=== PATIENT | female | born 1990 | race African-American/Black ===

== ENCOUNTER 2016-12-05 09:32 | Day surgery (SDC) | payer MEDICAID, OTHER ==
[2016-12-05 09:55] VITALS: BP 146/85; TEMP 98.3; BMI 27.4
--- NOTE | 2016-12-05 16:25 | PRG ---
DATE OF SERVICE: 12/05/2016 PRESENTING COMPLAINT: Contractions at 39 weeks gestation. HISTORY OF PRESENT ILLNESS: Ms. Ignacio is a 26-year-old 2, para 0, AB 1 with an CASE of 1 placing her at 39 weeks gestation who sees Aarti Fischer, certified nurse midwive, at [facility]. She presents complaining of 1 day of contractions. She has been walking and thinks that she may be in labor. She denies rupture of membranes. She reports an active fetus . OBSTETRICS/GYNECOLOGY HISTORY: SAB x1 for low-intervention , patient has mild pruritic urticar ial papules of . She is blood type B positive, antibody negative, Pap negative, rubella im mune, VDRL nonreactive, hepatitis B, GC chlamydia negative, sequential screen negative. 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 Group B Streptococcus unknown. PAST MEDICAL HISTORY: None. PAST SURGICAL HISTORY: Suction D\T\C for missed . SOCIAL HISTORY: Denies tobacco, alcohol, IV drug use. ALLERGIES: AMOXICILLIN. MEDICATIONS: vitamins. FAMILY HISTORY: Noncontributory. REVIEW OF SYSTEMS: Noncontributory. PHYSICAL EXAMINATION: GENERAL: Black female in no acute distress. VITAL SIGNS: Initial blood pressure 136/82, temperature 98.5, respirations 18, pulse 85. HEENT: Within normal limits. LUNGS: Clear to auscultation bilaterally. HEART: Regular rhythm. ABDOMEN: Soft and nontender. Fundal height 38 cm. FHTs 130s to 140s. PELVIC: Vulva without lesions. Vagina without discharge. Cervix was 1-2, 50, -2, cephalic by RN. EXTREMITIES: Without clubbing, cyanosis or edema. NEUROLOGIC: monitoring was carried out for greater than 20 minutes, which revealed a reactive heart rate tracing category 1. Serial blood pressures revealed a high systolic of 140, lowes t systolics in the 120s, diastolics were in the 70s-80s. The patient denies headache or scotoma. IMPRESSION: Prodromal labor, no evidence of active labor. PLAN: Discharge home, keep scheduled followup in 3 days with Aarti Fischer at [facility] with labor precautions.
== END 2016-12-05 11:05 | disposition home or self-care (01) ==
LOC: L&D/OP 09:32
PROVIDERS: ATTEND Advanced Practice Midwife
DX: O47.1 False labor at or after 37 completed weeks of gestation (principal); O26.86 Pruritic urticarial papules and plaques of pregnancy (PUPPP); Z3A.39 39 weeks gestation of pregnancy; Z79.899 Other long term (current) drug therapy; Z88.0 Allergy status to penicillin; Z98.890 Other specified postprocedural states

== ENCOUNTER 2016-12-05 21:53 | Inpatient (IN) | payer MEDICAID, OTHER ==
[~2016-12-05 21:53] MED LIST: Bupivacaine/Epinephrine 0.25% 30 ML VIAL ONE
[2016-12-05 22:31] VITALS: BMI 27.0
[2016-12-05] MEDS ORDERED: Promethazine HCl 25 MG/ML VIAL IM PRN (22:39)
[2016-12-05] MEDS ORDERED: Ondansetron HCl/PF 4 MG/2 ML Vial IVP PRN (22:39)
[2016-12-05] MEDS ORDERED: Lactated Ringer's 1,000 ML IV SCH (22:45)
[2016-12-05 23:47] LABS: Hematocrit 37.5 % (36.0-47.0); Mean Platelet Volume 7.6 fL (7.4-10.4); White Blood Cell (WBC) Count 18.9 thou/uL (4.8-10.8)
[2016-12-06] MEDS ORDERED: Dextrose 5%-Lactated Ringers 1,000 ML IV SCH (00:45)
[2016-12-06 06:11] LABS: Bilirubin Negative (Negative); Blood, Urine Large (Negative); Glucose, Urine (Dipstick) Negative (Negative); Ketone, Urine Negative (Negative); Nitrite Negative (Negative); Protein, Urine (Dipstick) Negative (Neg-Trace); Urobilinogen 0.2 mg/dL (0.2-1.0)
[2016-12-06 06:26] LABS: Bacteria/HPF 2+ HPF (None Seen); Hyaline Casts/LPF NONE SEEN LPF (0-3 Hyaline); Squamous Epithelial 0-3 HPF (0-3)
--- NOTE | 2016-12-06 07:08 | PDOC.LDHP ---
Labor and Delivery H&P Chief complaint: contractions HPI: Pt started having CTX starting yesterday morning 12/05/16 and was sent home at 1.5cm dilation. Returned to hospital at 2000 with reporting stronger contractions at home from 1800. Denies ROM, VB. + movement Current gestational age (weeks): 39 Due date: 12/12/16 Dating criteria: last menstrual period (verified with first trimester US) Grav: 2 Para: 0 OB History Details: negative herediT screening, Neg NT sono. Sequential screen negative. Current complications: none Abnormal US findings: No Past Medical History: History of STD Trich Current medications: pre-julien vitamins Previous surgical history: dilation and curettage (for missed AB) Allergies/Adverse Reactions: Allergies Allergy/AdvReac Type Severity Reaction Status Date / Time amoxicillin [Amoxicillin] Allergy Unknown Hives Verified 10/30/16 17:30 Social history: none - Physical Exam Vital signs reviewed and normal: yes General: breathing through contractions Heart: RRR Lungs: CTAB Abdomen: gravid FHT: category 1 - Vaginal Exam cm dilated: 5 Effacement: 90% Station: -2 - OB Labs Blood type: B RH: positive HIV: negative RPR: negative HEPSAg: negative 1 hour GCT: negative 3 hour GTT: negative GBS: negative Urine drug screen: not done - Assessment L&D Assessment: term patient in labor (in early latent labor) - Plan Plan: admit to L&D -: UA for frequency and burning D5% LR for vomiting and ketone on UA.
--- NOTE | 2016-12-06 07:27 | PDOC.LDPN ---
Labor & Delivery Progress Note - Subjective Subjective: painful contractions - Objective Vital signs reviewed and normal: yes General: breathing through contractions Uterine fundus: non tender Dilation: 5 Effacement: 100% Station: -2 FHT: category 1 Eliza contractions every: Q 6 min AROM: clear fluid - Assessment (1) Uterine contractions Code(s): [id number] - Current Visit: Yes Status: Acute (2) Nulliparity Code(s): [id number] - Current Visit: Yes Status: Acute (3) Urinary tract infection Current Visit: Yes Status: Acute Plan: other (Pt is PCN allergic. will consult regarding UTI treatment) Lab/Radiology Result Diagrams: 12/05/16 23:10 Lab Results - 24 Hours 12/06/16 12/05/16 12/05/16 05:55 23:10 23:10 WBC 18.9 H RBC 4.00 L Hgb 12.7 Hct 37.5 MCV 93.8 MCH 31.8 H MCHC 33.9 RDW 12.4 Plt Count 324 MPV 7.6 Urine Color YELLOW Urine Clarity CLEAR Urine pH 6.5 Ur Specific [place] 1.003 Urine Protein Negative Urine Glucose (UA) Negative Urine Ketones Negative Urine Blood Large H Urine Nitrite Negative Urine Bilirubin Negative Urine Urobilinogen 0.2 Ur Leukocyte Esterase Moderate H Urine RBC 4-6 Urine WBC 7-10 H Ur Squamous Epith Cells 0-3 Urine Bacteria 2+ H Hyaline Casts NONE SEEN Syphilis IgG/IgM Ab Non-Reactive Hep Bs Antigen 12/05/16 23:10 WBC RBC Hgb Hct MCV MCH MCHC RDW Plt Count MPV Urine Color Urine Clarity Urine pH Ur Specific [place] Urine Protein Urine Glucose (UA) Urine Ketones Urine Blood Urine Nitrite Urine Bilirubin Urine Urobilinogen Ur Leukocyte Esterase Urine RBC Urine WBC Ur Squamous Epith Cells Urine Bacteria Hyaline Casts Syphilis IgG/IgM Ab Hep Bs Antigen Non-Reactive
[2016-12-06] MEDS ORDERED: cefTRIAXone\\ROCEPHIN 1 GM in Sodium Chloride 0.9% 100 ML IVPB SCH (07:45)
[2016-12-06] MEDS ORDERED: Lactated Ringer's 1,000 ML IV SCH (08:45)
[2016-12-06] MEDS ORDERED: Fentanyl 4 mcg/Marc 0.1% Cadd 100 ML ONE (08:57)
[2016-12-06] MEDS ORDERED: Lidocaine 1% (PF) 30 ML VIAL ONE (11:25)
[2016-12-06] MEDS ORDERED: LR / Pitocin 40 units/1000 ml 1,000 ML ONE (11:25)
--- NOTE | 2016-12-06 12:00 | PDOC.OPDEL ---
OB Operative/Delivery Note Delivery Dr/Surgeon: Pura Fischer CNM Pre-Delivery Diagnosis: active labor Procedure/Post Delivery Dx: spontaneous vaginal delivery Weeks gestation: 39 Anesthesia: epidural - Findings A Sex: female Weight: 6 lb 6 oz - 5 min: 7 - 10 min: 9 - Additional Findings/Plan Placenta delivered: spontaneous Repaired Obstetrical Laceration: none Estimated blood loss: 200 Compilations/Other Findings: tight nuchal cord, not reducible. Baby delivered using somersault. Elevated systolic blood pressures noted. Will work up for preeclampsia with labs and monitor blood pressures post . UA was negative for protein on 12/06/16 Platlets and hg WNL on admission. Post delivery plan: routine recovery (1. monitor BPs - give IV labetalol if 160 or 110 diastolic and Notify CNM. will do Pree work up if indicated.) Lab/Radiology Result Diagrams: 12/05/16 23:10 Lab Results - 24 Hours 12/06/16 12/05/16 12/05/16 05:55 23:10 23:10 WBC 18.9 H RBC 4.00 L Hgb 12.7 Hct 37.5 MCV 93.8 MCH 31.8 H MCHC 33.9 RDW 12.4 Plt Count 324 MPV 7.6 Urine Color YELLOW Urine Clarity CLEAR Urine pH 6.5 Ur Specific [place] 1.003 Urine Protein Negative Urine Glucose (UA) Negative Urine Ketones Negative Urine Blood Large H Urine Nitrite Negative Urine Bilirubin Negative Urine Urobilinogen 0.2 Ur Leukocyte Esterase Moderate H Urine RBC 4-6 Urine WBC 7-10 H Ur Squamous Epith Cells 0-3 Urine Bacteria 2+ H Hyaline Casts NONE SEEN Syphilis IgG/IgM Ab Non-Reactive Hep Bs Antigen 12/05/16 23:10 WBC RBC Hgb Hct MCV MCH MCHC RDW Plt Count MPV Urine Color Urine Clarity Urine pH Ur Specific [place] Urine Protein Urine Glucose (UA) Urine Ketones Urine Blood Urine Nitrite Urine Bilirubin Urine Urobilinogen Ur Leukocyte Esterase Urine RBC Urine WBC Ur Squamous Epith Cells Urine Bacteria Hyaline Casts Syphilis IgG/IgM Ab Hep Bs Antigen Non-Reactive
[2016-12-06] MEDS ORDERED: LR / Pitocin 40 units/1000 ml 1,000 ML IV PRN (13:45)
[2016-12-06] MEDS ORDERED: Bisacodyl 10 MG SUPP PR PRN (14:20)
[2016-12-06] MEDS ORDERED: Benzocaine/Menthol 20-0.5% 60 ML CAN TOP PRN (14:20)
[2016-12-06] MEDS ORDERED: Labetalol HCl 100 MG/20 ML VIAL SLOW IVP SCH (14:20)
[2016-12-06] MEDS ORDERED: Milk Of Magnesia 30 ML UDCUP PO PRN (14:20)
[2016-12-06] MEDS ORDERED: HYDROcodone/Acetaminophen 5/325 mg Tablet PO PRN ×2 (14:20)
[2016-12-06] MEDS ORDERED: LR / Pitocin 40 units/1000 ml 1,000 ML IV SCH (14:20)
[2016-12-06] MEDS ORDERED: Ondansetron HCl/PF 4 MG/2 ML Vial IVP PRN (14:20)
[2016-12-06] MEDS ORDERED: Misoprostol 200 MCG TAB VAG SCH (14:30)
[2016-12-06] MEDS: Ibuprofen 800 MG TAB PO SCH ×2 (14:45→21:17)
[2016-12-06] MEDS: Ferrous Sulfate 325 MG TAB PO SCH (15:38)
[2016-12-06] MEDS: Docusate (Surfak) 240 MG CAP PO SCH (21:17)
[2016-12-07 05:32] LABS: Mean Platelet Volume 7.5 fL (7.4-10.4); Red Blood Cell (RBC) Count 3.46 mill/uL (4.20-5.40); White Blood Cell (WBC) Count 20.8 thou/uL (4.8-10.8)
[2016-12-07] MEDS: Ibuprofen 800 MG TAB PO SCH ×3 (05:36→21:41)
[2016-12-07] MEDS: Docusate (Surfak) 240 MG CAP PO SCH ×2 (07:45→21:41)
[2016-12-07] MEDS: Prenatal Vitamin 1 TAB PO SCH (07:45)
[2016-12-07] MEDS: Ferrous Sulfate 325 MG TAB PO SCH ×2 (07:46→13:44)
[2016-12-07] MEDS: Lanolin Ointment 7 GM TUBE TOP PRN (07:47)
[2016-12-07] MEDS ORDERED: Measles/Mumps/Rubella 10 MCG/0.5 ML VIAL SC ONE (09:00)
[2016-12-07] MEDS ORDERED: Adacel (T-DAP) 0.5 ML VIAL IM ONE (09:00)
--- NOTE | 2016-12-07 15:08 | PDOC.PP ---
Post Progress Note Post Day #: 1 -: Pt is doing well. in nursery bc pt needed a break PO intake tolerated: yes Flatus: yes Ambulation: yes Vital Signs (12 hours) Temp Pulse Resp BP 12/07/16 13:00 97.9 F 62 20 124/83 12/07/16 11:15 98.6 F 63 20 12/07/16 07:58 98.6 F 63 20 130/71 12/07/16 07:40 98.6 F 63 20 12/07/16 05:45 98.5 F 69 20 151/67 H Weight Weight 160 lb - Physical Examination General: NAD Cardiovascular: no m/r/g, RRR Respiratory: clear to ausculation bilateral Abdominal: + bowel sounds, lochia (minimal) Fundus firm & at: U-1 Extremities: negative homans (B) Neurological: no gross focal deficits Psychiatric: A&Ox3 Result Diagrams: 12/07/16 05:04 Additional Labs: Post Labs Hep Bs Antigen Non-Reactive S/CO (NonReactive) 12/05/16 23:10 (1) Uterine contractions Code(s): [id number] - Status: Acute (2) Nulliparity Code(s): [id number] - Status: Acute (3) Urinary tract infection Status: Acute - Assessment/Plan A: PPD #1 s/p at 39w. Isolated systolic Blood pressure elevations. P: continue to monitor BPs and plan for discharge home tomorrow if NML.
[2016-12-08] MEDS: Ibuprofen 800 MG TAB PO SCH (04:35)
[2016-12-08] MEDS: Lanolin Ointment 7 GM TUBE TOP PRN (04:37)
[2016-12-08 08:15] VITALS: BP 145/73; TEMP 98.1
[2016-12-08] MEDS: Ferrous Sulfate 325 MG TAB PO SCH (08:16)
[2016-12-08] MEDS: Prenatal Vitamin 1 TAB PO SCH (09:27)
[2016-12-08] MEDS: Docusate (Surfak) 240 MG CAP PO SCH (09:27)
== END 2016-12-08 13:20 | disposition home or self-care (01) | DRG 774 ==
LOC: L&D/OP 21:53 → L&D 23:21 → 3SW 12-06 14:20
PROVIDERS: ADMIT Obstetrics & Gynecology; ATTEND Obstetrics & Gynecology
PROC: 10E0XZZ Delivery of Products of Conception, External Approach (ICD-10-PCS; principal; 2016-12-06)
PROC: 10907ZC Drainage of Amniotic Fluid, Therapeutic from Products of Conception, Via Natural or Artificial Opening (ICD-10-PCS; 2016-12-06)
DX: O75.3 Other infection during labor (principal); N39.0 Urinary tract infection, site not specified; O69.81X0 Labor and delivery complicated by cord around neck, without compression, not applicable or unspecified; Z3A.39 39 weeks gestation of pregnancy; Z37.0 Single live birth; Z88.0 Allergy status to penicillin
CPT/HCPCS: 36415; 76815; 81001; 85027; 86780; 87340; A4216; J0595; J0696; J2001; J2405; J7050

== ENCOUNTER 2017-05-22 14:00 | Outpatient (CLI) | payer OTHER ==
[2017-05-22 16:34] LABS: Hemoglobin 13.2 g/dL (12.0-16.0); Mean Corpuscular HGB CONC 33.2 g/dL (32.0-36.0); Mean Corpuscular Hemoglobin 30.8 pg (27.0-31.0); Mean Corpuscular Volume 92.8 fl (81.0-99.0); Mean Platelet Volume 6.7 fL (7.4-10.4); Platelet Count 418 thou/uL (130-400); RBC Distribution Width 11.7 % (11.5-14.5); Red Blood Cell (RBC) Count 4.28 mill/uL (4.20-5.40); White Blood Cell (WBC) Count 11.2 thou/uL (4.8-10.8)
== END 2017-05-22 14:01 | disposition home or self-care (01) ==
LOC: LABBT 14:00
PROVIDERS: ATTEND Obstetrics & Gynecology
DX: Z01.812 Encounter for preprocedural laboratory examination (principal); O02.1 Missed abortion
CPT/HCPCS: 85027; 86850; 86900; 86901

== ENCOUNTER 2017-05-24 09:54 | Day surgery (SDC) | payer OTHER ==
[2017-05-22 15:16] VITALS: BMI 23.0
[2017-05-24] MEDS ORDERED: Fentanyl 100 MCG/2 ML VIAL ONE (11:04)
[2017-05-24] MEDS ORDERED: Midazolam HCl 2 mg/2 ml Vial ONE (11:04)
[2017-05-24] MEDS ORDERED: Doxycycline 100 MG CAP PO SCH ×2 (12:00→13:45)
[2017-05-24] MEDS ORDERED: Dexamethasone 20 MG/5 ML VIAL ONE ×2 (13:05)
[2017-05-24] MEDS ORDERED: Lidocaine 1% PF 5 ML VIAL ONE (13:05)
[2017-05-24] MEDS ORDERED: Ketorolac Tromethamine 30 MG/ML VIAL ONE (13:05)
[2017-05-24] MEDS ORDERED: Ondansetron HCl/PF 4 MG/2 ML Vial ONE (13:05)
[2017-05-24] MEDS ORDERED: PROPOFOL 200 MG/20 ML VIAL ONE (13:05)
[2017-05-24] MEDS ORDERED: Succinylcholine Chloride 20 MG/ML 10 ml SYRINGE FS ONE (13:05)
--- NOTE | 2017-05-24 13:58 | OP ---
PREOPERATIVE DIAGNOSES: 1. Monochorionic monoamniotic twin gestation. 2. Missed of both fetuses. POSTOPERATIVE DIAGNOSES: 1. Monochorionic monoamniotic twin gestation. 2. Missed of both fetuses. PROCEDURE: Suction dilation and curettage. SURGEON: Radhika Clements D.O. COMPLICATIONS: None. ANESTHESIA: General. ESTIMATED BLOOD LOSS: 200 mL. URINE OUTPUT: 30 mL. IV FLUIDS: 800 mL crystalloid. INDICATIONS FOR THE PROCEDURE: Ms. Tressa Ignacio is a 26-year-old G3, P1 with a diagnosis of missed of monochorionic monoamniotic twin gestation at approximately 7 weeks and 4 days. The patient was counseled on options of medical versus surgical management and desired to have surgical management due to a prior failed medical management for missed . PROCEDURE IN DETAIL: The patient was brought to the operating room and she was placed under general anesthesia. The patient was placed in dorsal lithotomy position using candy cane stirrups. She was prepped and draped in a sterile fashion. A straight catheterization was performed. An official timeout was performed. The patient was given doxycycline orally prior to the procedure for prophylaxis. A weighted speculum was placed in the posterior aspect of vagina and the anterior aspect of the vagina was retracted using a Chacko retractor. The anterior aspect of the cervix was grasped using a single-tooth tenaculum. The uterus was sounded to approximately 10 cm. The cervix was sequentially dilated using Karel dilators. An 8 mm suction curette was inserted into the uterine cavity . Suction curettage performed required multiple passes with the suction curette. A sharp curettage was then performed in circumferential fashion, still noting smooth texture. Therefore, additional passes of suction curettage were performed until gritty texture was obtained. The uterus was sounded again and also approximately 9-10 cm. After the completion of the procedure, single-tooth tenaculum was removed from the anterior aspect of the cervix. The retractors were removed from the vagina. The patient was placed back in supine position and was extubated without difficulty. All counts were correct x2. There were no complications. The patient will be transferred to PACU in hemodynamically stable condition. She will receive doxycycline postoperatively for surgical prophylaxis. BRIAN
== END 2017-05-24 15:06 | disposition home or self-care (01) ==
LOC: SDC 09:54
PROVIDERS: ATTEND Obstetrics & Gynecology
PROC: 10D17Z9 Manual Extraction of Products of Conception, Retained, Via Natural or Artificial Opening (ICD-10-PCS; principal; 2017-05-24)
DX: O02.1 Missed abortion (principal); Z79.899 Other long term (current) drug therapy; Z88.0 Allergy status to penicillin; Z98.890 Other specified postprocedural states
CPT/HCPCS: 88305; J0131; J1100; J1885; J2001; J2250; J2405; J2704; J3010